=== PATIENT | male | born 1945 | race Caucasian/White ===

== ENCOUNTER → 2017-04-19 | Day surgery (SDC) | payer MEDICARE ==
[~2017-04-19] VITALS: Ht 172.7 cm; Wt 63.5 kg
[~2017-04-19] MED LIST: ACETAMINOPHEN 325 MG TAB PO PRN; ASPI81CH37 CHEW; CHLORHEXIDINE GLUCONATE 2 % 1 PACK (2 CLOTHS) TOPICAL PRN; HYALURONIDASE/LIDOCAINE/EPINEPHRINE/BUPIVACAINE 6 ML SYR RIGHT EYE ONE; INSULIN HUMAN REGULAR 1,000 UNITS/10 ML VIAL SQ PRN; LACTATED RINGER'S 1000 ML IV PRN; LISI-515 PO; LOVA20TA PO; MELA5TAB15 PO; METOPROLOL TARTRATE 25 MG TAB PO PRN; NIFE1TAB PO; POVIDONE IODINE 5% (ANTISEPSIS KIT) 4 APPLICATIONS EACH NARE PRN; PROPARACAINE HCL 0.5% OPHT SOLN 15 ML BTL RIGHT EYE ONE; PROPOFOL 200 MG/20 ML AMP ONE; SODIUM CHLORID 0.9% 500 ML IV PRN; TOBRAMYCIN/DEXAMETHASONE OPTH OINT 3.5 GM TUBE ONE
[2017-04-19] MEDS: FLURBIPROFEN 0.03% OPHT SOLN 2.5 ML BTL RIGHT EYE SCH ×4 (07:00→07:15)
[2017-04-19] MEDS: CYCLOPENTOLATE HCL 1% OPHT SOLN 2 ML BTL RIGHT EYE SCH ×4 (07:00→07:15)
[2017-04-19] MEDS: TROPICAMIDE 1% OPHT SOLN 15 ML BTL RIGHT EYE SCH ×4 (07:00→07:15)
[2017-04-19] MEDS: PHENYLEPHRINE HCL 10% OPTH SOLN 5 ML BTL RIGHT EYE SCH ×4 (07:00→07:15)
[2017-04-19 07:01] VITALS: BP 176/84; PULSE 101; RESP 20; TEMP 97.8; O2SAT 100
[2017-04-19 07:10] VITALS: PULSE 91
[2017-04-19 08:45] VITALS: TEMP 98.1
[2017-04-19 09:00] VITALS: BP 152/77; PULSE 95; RESP 16; O2SAT 94
--- NOTE | 2017-04-20 13:02 | MP ---
cc: RAY QUEEN M.D. DATE OF SURGERY: 04/19/2017. [facility] NUMBER: [id number]. PREOPERATIVE DIAGNOSIS Visually significant cataract right eye. POSTOPERATIVE DIAGNOSIS Visually significant cataract right eye. OPERATION Phacoemulsification with posterior chamber lens implantation, right eye. SURGEON Ray Queen MD ANESTHESIA Retrobulbar with MAC. COMPLICATIONS None DESCRIPTION OF THE PROCEDURE IN DETAIL: After informed consent was obtained, the patient was brought into the operative suite and placed on appropriate monitors by the Anesthesia Service. The patient had received a prior retrobulbar injection of local anesthetic by the Anesthesia Service in the holding area. The patient's operative eye was then prepped and draped in the usual sterile fashion. A wire lid speculum was placed. A paracentesis incision was made in the peripheral cornea with a 1 mm gerson keratome. The anterior chamber was filled with viscoelastic. The anterior chamber was then entered through a stepped, clear corneal incision using a sharp 3 mm gerson keratome. A circular tear capsulorrhexis was then made with a bent needle cystitome. Following hydrodissection of the lens nucleus with balanced saline, phacoemulsification of the nucleus was performed using a modified chopping technique. The remaining cortex was removed with irrigation/aspiration. The prior two procedures were both performed using the handpieces of the [employer] phaco unit. The capsular bag was then filled with viscoelastic. The intraocular lens was then injected into the capsular bag and positioned. The type of intraocular lens and its power can be found elsewhere in this chart. The remaining viscoelastic was then removed from the anterior chamber with the IA handpiece. The anterior chamber was reformed with balanced saline. The wound was then closed securely with stromal hydration. It was found to be watertight to an intraocular pressure of at least 30 mmHg by palpation. A small amount of balanced salt solution was then removed through the paracentesis site and the intraocular pressure at the end of the case was approximately 20 by palpation. All drapes were then removed. TobraDex ointment was then placed in the eye, which was closed beneath a semi-pressure patch dressing. The patient tolerated this procedure well and left the operating room awake and alert. The patient is to follow-up in my office in the morning. MD SHANTE Beasley/JOCELIN /10:05 AM /12:59 PM
== END | disposition home or self-care (01) ==
LOC: PHSDC 06:25
PROVIDERS: ATTEND Optometrist Occupational Vision
DX: H25.811 Combined forms of age-related cataract, right eye (principal); H47.2 Optic atrophy; H02.401 Unspecified ptosis of right eyelid; H40.003 Preglaucoma, unspecified, bilateral; I10 Essential (primary) hypertension; E78.5 Hyperlipidemia, unspecified; I71.4 Abdominal aortic aneurysm, without rupture; M54.5 Low back pain; I70.0 Atherosclerosis of aorta
CPT/HCPCS: 00142; 66984; J7040; V2632